=== PATIENT | male | born 1960 | race Caucasian/White ===

== ENCOUNTER 2018-01-02 07:47 | Emergency (ER) | payer OTHER ==
[~2018-01-02] VITALS: Ht 172.7 cm; Wt 105.9 kg
[2018-01-02] MEDS ORDERED: ULTRAM50 MG PO (08:42)
[2018-01-02] MEDS ORDERED: MOTRIN600 MG PO (08:42)
[2018-01-02] MEDS ORDERED: FLEXERIL10 MG PO (08:42)
[2018-01-02] MEDS ORDERED: LIDODERM 5% P1 PATCH TD (08:42)
[2018-01-02 09:13] VITALS: BP 132/80
== END 2018-01-02 09:14 | disposition home or self-care (01) ==
LOC: EME 07:47
DX: M25.512 Pain in left shoulder (principal)
CPT/HCPCS: 73030; 99281; 99284; J1885